=== PATIENT | male | born 1935 | race Asian ===

== ENCOUNTER 2022-01-18 21:45 | Emergency (ER) | payer OTHER ==
[~2022-01-18] VITALS: Ht 180.3 cm; Wt 54.4 kg
[2022-01-18 21:45] VITALS: BP 140/90
--- NOTE | 2022-01-18 21:45 | NUR ---
Max toscano in ED - 01/18/22 at 2201 by [facility] PT BIBA ALS ER BED 10
--- NOTE | 2022-01-18 21:45 | NUR ---
PT BIBA BLS ER BED 9
--- NOTE | 2022-01-18 21:54 | NUR ---
Max toscano in ED - 01/18/22 at 2210 by [facility] ASSISTED CPR AND INTUBATION.
[2022-01-19] MEDS ORDERED: NACL 0.9% 1,000 ML IV ONE (00:30)
[2022-01-19 00:45] LABS: BASOPHILS % (AUTO) 0.2 % (0.0-2.0); EOSINOPHILS # (AUTO) 0.1 K/uL (0-0.4); EOSINOPHILS % (AUTO) 1.1 % (0.0-4.0); HEMOGLOBIN 12.5 g/dL (12.0-18.0); LYMPHOCYTES % (AUTO) 24.7 % (20.5-51.1); MEAN CORPUSCULAR HEMOGLOBIN 31 pg (27-31); MEAN CORPUSCULAR HGB CONC 35 g/dL (33-37); MEAN CORPUSCULAR VOLUME 90.3 fL (80-94); MONOCYTES # (AUTO) 0.6 K/uL (0.8-1.0); MONOCYTES % (AUTO) 7.2 % (1.7-9.3); NEUTROPHILS # (AUTO) 5.4 K/uL (1.8-7.7); NEUTROPHILS % (AUTO) 66.8 % (42.2-75.2); PLATELET COUNT (AUTO) 196 K/uL (140-450); RED BLOOD CELL COUNT(AUTO) 3.99 MIL/uL (4.20-6.10); RED CELL DISTRIBUTION WIDTH 13.4 % (11.6-13.7); WHITE BLOOD COUNT (AUTO) 8.1 K/uL (4.8-10.8)
[2022-01-19 01:00] LABS: ANION GAP 14.1 (8-16); ASPARTATE AMINOTRANSFERASE 19 U/L (15-37); CHLORIDE 105 mmol/L (98-107); GLUCOSE 86 mg/dL (74-106); POTASSIUM 4.1 mmol/L (3.5-5.1); SODIUM SERUM 139 mmol/L (136-145); TOTAL BILIRUBIN 0.6 mg/dL (0.0-1.0); UREA NITROGEN, BLOOD 23 mg/dL (7-18)
--- NOTE | 2022-01-19 01:51 | NUR ---
PATIENT STABLE VITALS SIGNS IN NORMAL LIMITS HAS BM AND URINE 200 ML NOT COMPLAINING OF PAIN AT THIS TIME
[2022-01-19 06:25] VITALS: BP 120/93
--- NOTE | 2022-01-19 09:08 | NUR ---
SPOKE TO [place] AT [facility] [place] INFORMED OF PT CONDITION AND DISCHARGE
--- NOTE | 2022-01-19 09:30 | NUR ---
Patient discharged with v/s stable. Written and verbal after care instructions given and explained. Patient verbalized understanding. [facility] with to care home [facility]. All questions addressed prior to discharge. Advised to follow up with PMD.
--- NOTE | 2022-01-21 08:21 | NUR ---
LATE ENTRY-IVF/IVP MEDS
== END 2022-01-19 09:30 ==
LOC: MED 21:45
DX: R53.1 Weakness (principal); Z20.822 Contact with and (suspected) exposure to COVID-19; I10 Essential (primary) hypertension; E11.9 Type 2 diabetes mellitus without complications; I48.91 Unspecified atrial fibrillation; K21.9 Gastro-esophageal reflux disease without esophagitis; Z79.4 Long term (current) use of insulin; Z79.899 Other long term (current) drug therapy
CPT/HCPCS: 36415; 70450; 71045; 80053; 85025; 87426; 87804; 96360; 99285; J7030; Q0092

== ENCOUNTER 2022-03-10 02:38 | Emergency (ER) | payer OTHER ==
[~2022-03-10] VITALS: Ht 180.3 cm; Wt 79.8 kg
[2022-03-10 02:41] VITALS: BP 142/92
--- NOTE | 2022-03-10 02:41 | NUR ---
BIBA TO BED #12
--- NOTE | 2022-03-10 02:41 | NUR ---
Patient taken to bed 12.
--- NOTE | 2022-03-10 03:00 | NUR ---
BIBA FROM [facility] TO BED 12 WITH C/O WITNESSED FALL, PT HIT HEAD AND LEFT FOREHEAD HEMATOMA NOTED. PT IS CURRENTLY NON-VERBAL. PMHx: DM, Depression, HTN, HLD, GERD, A-FIB, Aortic stenosis, Myocarditis, Dysphagia
--- NOTE | 2022-03-10 03:12 | NUR ---
Dr. Schneider examining patient.
--- NOTE | 2022-03-10 03:32 | NUR ---
Patient returned back from CT scan.
[2022-03-10 04:31] LABS: APPEARANCE,URINE CLEAR (CLEAR); BILIRUBIN,URINE NEGATIVE (NEGATIVE); BLOOD, URINE NEGATIVE (NEGATIVE); COLOR,URINE YELLOW (YELLOW); LEUKOCYTE ESTERASE ,URINE NEGATIVE (NEGATIVE); NITRITE, URINE NEGATIVE (NEGATIVE); UGLUCOSE NEGATIVE (NEGATIVE)
--- NOTE | 2022-03-10 05:00 | NUR ---
LABS DRAWN AND SENT TO LAB
[2022-03-10 05:19] LABS: CHLORIDE 109 mmol/L (98-107); POTASSIUM 4.2 mmol/L (3.5-5.1); SODIUM SERUM 144 mmol/L (136-145)
[2022-03-10 05:31] LABS: BASOPHILS % (AUTO) 0.2 % (0.0-2.0); EOSINOPHILS # (AUTO) 0.1 K/uL (0-0.4); EOSINOPHILS % (AUTO) 0.7 % (0.0-4.0); HEMATOCRIT 36.1 % (36-52); HEMOGLOBIN 12.1 g/dL (12.0-18.0); LYMPHOCYTES # (AUTO) 1.1 K/uL (2.0-11.5); LYMPHOCYTES % (AUTO) 12.8 % (20.5-51.1); MEAN CORPUSCULAR HEMOGLOBIN 31 pg (27-31); MEAN CORPUSCULAR HGB CONC 34 g/dL (33-37); MONOCYTES # (AUTO) 0.5 K/uL (0.8-1.0); NEUTROPHILS % (AUTO) 80.3 % (42.2-75.2); PLATELET COUNT (AUTO) 218 K/uL (140-450); RED BLOOD CELL COUNT(AUTO) 3.92 MIL/uL (4.20-6.10); RED CELL DISTRIBUTION WIDTH 14.8 % (11.6-13.7); WHITE BLOOD COUNT (AUTO) 8.7 K/uL (4.8-10.8)
[2022-03-10 05:37] LABS: ANION GAP 11.5 (8-16); ASPARTATE AMINOTRANSFERASE 16 U/L (15-37); CARBON DIOXIDE 26.7 mmol/L (21-32); CREATININE 0.8 mg/dL (0.6-1.3); GLUCOSE 124 mg/dL (74-106); TOTAL BILIRUBIN 0.4 mg/dL (0.0-1.0); UREA NITROGEN, BLOOD 20 mg/dL (7-18)
--- NOTE | 2022-03-10 07:20 | NUR ---
Received report NABIL Reyna. Assumed care at this time.
--- NOTE | 2022-03-10 07:56 | NUR ---
Called [facility] and spoke with NABIL Krishnamurthy to give report. Yessy requested to be called back with an ETA.
--- NOTE | 2022-03-10 09:46 | NUR ---
S/w NABIL Krishnamurthy. Notified her transportation will be here to pick pt up at 1000.
[2022-03-10 10:04] VITALS: BP 120/84
--- NOTE | 2022-03-10 10:04 | NUR ---
Patient discharged with v/s stable. Written and verbal after care instructions given and explained. Patient verbalized understanding. [facility] Transport with to [facility]. All questions addressed prior to discharge. Advised to follow up with PMD.
== END 2022-03-10 10:04 ==
LOC: MED 02:38
DX: S00.83XA Contusion of other part of head, initial encounter (principal); E11.9 Type 2 diabetes mellitus without complications; K21.9 Gastro-esophageal reflux disease without esophagitis; I10 Essential (primary) hypertension; Z86.73 Personal history of transient ischemic attack (TIA), and cerebral infarction without residual deficits; W19.XXXA Unspecified fall, initial encounter; Y93.89 Activity, other specified; Y92.89 Other specified places as the place of occurrence of the external cause; Y99.8 Other external cause status
CPT/HCPCS: 36415; 70450; 71045; 80053; 81003; 84484; 85025; 93005; 99285; Q0092